=== PATIENT | female | born 1995 | race Hispanic/Latino ===

== ENCOUNTER 2017-07-19 08:54 | Observation (INO) | payer MEDICAID, OTHER ==
[~2017-07-19] VITALS: Ht 156.2 cm; Wt 52.2 kg
[2017-07-19 09:51] LABS: APPEARANCE,URINE Cloudy (CLEAR); BILIRUBIN,URINE Negative (NEGATIVE); COLOR,URINE Yellow (YELLOW); GLUCOSE, URINE (UA) Negative (NEGATIVE); KETONES,URINE Negative (NEGATIVE); LEUKOCYTE ESTERASE ,URINE Moderate (NEGATIVE); NITRATE,URINE Negative (NEGATIVE); OCCULT BLOOD,URINE Negative (NEGATIVE); PROTEIN,URINE Negative (NEGATIVE); UROBILINOGEN,URINE 0.2 mg/dL (0.2-1.0)
[2017-07-19 10:10] LABS: BACTERIA,URINE Few /HPF (None Seen); RBC,URINE 0-1 /HPF (0-1); SQUAMOUS EPITHELIAL CELL,UR Rare /LPF (0-2)
[2017-07-19] MEDS: LACTATED RINGERS 1000ML 1,000 ML IV PRN ×2 (10:30→11:49)
[2017-07-19 10:41] LABS: HEMATOCRIT 32.7 % (36-48); MEAN CORPUSCULAR HGB CONC 35.3 g/dL (32.0-36.0); MEAN CORPUSCULAR VOLUME 93.6 fL (79-99); PLATELET COUNT (AUTO) 144 K/uL (130-400); RED CELL DISTRIBUTION WIDTH 12.5 % (11.0-15.5); WHITE BLOOD COUNT (AUTO) 9.1 K/uL (4.8-10.8)
[2017-07-19] MEDS ORDERED: CEFTRIAXONE 1GM/D5W 50ML 50 ML IV SCH (12:23)
[2017-07-19] MEDS ORDERED: TERBUTALINE SULFATE VIAL 1MG/ML SQ ONE (12:26)
[2017-07-19] MEDS ORDERED: CEFTRIAXONE 1GM/D5W 50ML 50 ML IV ONE (12:28)
[2017-07-19] MEDS ORDERED: TERBUTALINE SULFATE VIAL 1MG/ML SQ PRN (12:30)
[2017-07-19] MEDS ORDERED: AZITHROMYCIN 500MG+NS 250ML 250 ML IV SCH (12:30)
[2017-07-19] MEDS ORDERED: CEFTRIAXONE SODIUM 1 GM IVP SCH (12:45)
[2017-07-20 07:28] LABS: HEPATITIS Bs ANTIGEN SCREEN P Negative (Negative)
== END 2017-07-19 14:25 | disposition home or self-care (01) ==
LOC: EDH 08:54 → LDH 08:55
PROVIDERS: ADMIT Obstetrics & Gynecology; ATTEND Obstetrics & Gynecology
DX: O36.8130 Decreased fetal movements, third trimester, not applicable or unspecified (principal); Z3A.38 38 weeks gestation of pregnancy
CPT/HCPCS: 36415; 76805; 76819; 81001; 85027; 86592; 86850; 86900; 86901; 87340; 96361 ×2; 96365; 96372; 99285; G0378 ×5; J0456; J0696 ×2; J3105; J7120; 96360

== ENCOUNTER 2017-07-21 06:33 | Inpatient (IN) | payer MEDICAID, OTHER ==
[~2017-07-21] VITALS: Ht 152.4 cm; Wt 52.6 kg
[2017-07-21 07:13] LABS: APPEARANCE,URINE Clear (CLEAR); BILIRUBIN,URINE Negative (NEGATIVE); COLOR,URINE Yellow (YELLOW); GLUCOSE, URINE (UA) Negative (NEGATIVE); KETONES,URINE Negative (NEGATIVE); LEUKOCYTE ESTERASE ,URINE Negative (NEGATIVE); NITRATE,URINE Negative (NEGATIVE); OCCULT BLOOD,URINE Trace (NEGATIVE); PROTEIN,URINE Negative (NEGATIVE); UROBILINOGEN,URINE 0.2 mg/dL (0.2-1.0)
[2017-07-21 07:41] LABS: BACTERIA,URINE Rare /HPF (None Seen); SQUAMOUS EPITHELIAL CELL,UR Few /LPF (0-2)
[2017-07-21] MEDS ORDERED: LACTATED RINGERS 1000ML 1,000 ML IV SCH (07:45)
[2017-07-21] MEDS ORDERED: CEFAZOLIN SODIUM 1 GM VIAL IVP PRN (07:45)
[2017-07-21] MEDS ORDERED: CEFAZOLIN SODIUM 1 GM VIAL ONE (07:52)
[2017-07-21 08:04] LABS: HEMATOCRIT 32.8 % (36-48); MEAN CORPUSCULAR HEMOGLOBIN 32.5 pg (27.0-33.0); MEAN CORPUSCULAR HGB CONC 34.8 g/dL (32.0-36.0); MEAN CORPUSCULAR VOLUME 93.4 fL (80-100); PLATELET COUNT (AUTO) 157 K/uL (130-400); RED BLOOD CELL COUNT(AUTO) 3.52 MIL/uL (4.00-5.50); RED CELL DISTRIBUTION WIDTH 12.7 % (11.0-15.5)
[2017-07-21] MEDS ORDERED: ONDANSETRON HCL 4 MG/2 ML VIAL ONE (08:08)
[2017-07-21] MEDS ORDERED: OXYTOCIN 10 USP UNITS/ML ONE ×2 (08:08→10:02)
[2017-07-21] MEDS ORDERED: DEXAMETHASONE SOD PHOSPHATE 10MG/ML 1ML VIAL ONE (08:08)
[2017-07-21] MEDS ORDERED: EPHEDRINE-NS PF 50MG/5ML SYRINGE IV ONE (08:09)
[2017-07-21] MEDS ORDERED: CEFAZOLIN SODIUM 1 GM VIAL IVP ONE (08:25)
[2017-07-21 09:07] LABS: AMPHET/METH SCREEN,URINE NEGATIVE (NEGATIVE); BARBITURATE SCREEN, URINE NEGATIVE (NEGATIVE); BENZODIAZEPINES SCREEN,URINE NEGATIVE (NEGATIVE); CANNABINOID SCREEN,URINE NEGATIVE (NEGATIVE); COCAINE SCREEN,URINE NEGATIVE (NEGATIVE); OPIATE SCREEN,URINE NEGATIVE (NEGATIVE); PHENCYCLIDINE SCREEN,URINE NEGATIVE (NEGATIVE)
[2017-07-21] MEDS ORDERED: OXYTOCIN-LR 20 UNITS/1000 ML 1,000 ML IV PRN (09:29)
[2017-07-21] MEDS ORDERED: PROMETHAZINE HCL 25 MG/ML 1ML AMPULE IM PRN ×2 (09:30→11:45)
[2017-07-21] MEDS ORDERED: SODIUM CHLORIDE 0.9% 10 ML VIAL IVP PRN (09:30)
[2017-07-21] MEDS ORDERED: MEPERIDINE-PF 75 MG/ML SYG IM PRN (09:30)
[2017-07-21 10:23] VITALS: BP 126/74
[2017-07-21 11:40] VITALS: BP 118/69
[2017-07-21] MEDS ORDERED: MORPHINE SULFATE 2 MG/ML 1ML SYG IVP PRN (11:45)
[2017-07-21] MEDS ORDERED: ONDANSETRON HCL 4 MG/2 ML 8 MG in SODIUM CHLORIDE 0.9% 50 ML IVP NR (11:45)
[2017-07-21] MEDS ORDERED: EPHEDRINE SULFATE 50 MG/ML AMPULE IVP PRN (11:45)
[2017-07-21] MEDS ORDERED: DiphenhydrAMINE HCL 50 MG/ML VIAL IVP PRN (11:45)
[2017-07-21] MEDS ORDERED: NALOXONE HCL 0.4 MG/1 ML ML IVP PRN ×2 (11:45)
[2017-07-21] MEDS ORDERED: HYDROCODONE/ACETAMINOPHEN 5/325 MG TAB PO PRN (11:45)
[2017-07-21] MEDS ORDERED: METOCLOPRAMIDE 10 MG/2 ML VIAL IVP PRN (11:45)
[2017-07-21] MEDS ORDERED: ONDANSETRON HCL 4 MG/2 ML VIAL IVP PRN ×2 (11:45)
[2017-07-21] MEDS ORDERED: PNV1TABL17 PO (16:29)
[2017-07-21 16:36] VITALS: BP 120/69
[2017-07-21] MEDS ORDERED: FLU VACC QS2017-18 36MOS UP/PF 60 MCG/0.5 ML ML IM ONE (18:15)
[2017-07-21 19:43] VITALS: BP 110/52
[2017-07-21] MEDS: HYDROCODONE/ACETAMINOPHEN 5/325 MG TAB PO PRN (20:35)
[2017-07-21] MEDS: DEXTROSE 5 %-0.45 % NACL 1,000 ML IV PRN (20:35)
[2017-07-21 23:17] VITALS: BP 109/57
[2017-07-22] MEDS: DEXTROSE 5 %-0.45 % NACL 1,000 ML IV PRN (02:39)
[2017-07-22 03:32] VITALS: BP 93/58
[2017-07-22 05:28] LABS: HEMATOCRIT 29.2 % (36-48); MEAN CORPUSCULAR HEMOGLOBIN 32.6 pg (27.0-33.0); MEAN CORPUSCULAR HGB CONC 34.8 g/dL (32.0-36.0); MEAN CORPUSCULAR VOLUME 93.8 fL (80-100); PLATELET COUNT (AUTO) 157 K/uL (130-400); RED BLOOD CELL COUNT(AUTO) 3.11 MIL/uL (4.00-5.50); RED CELL DISTRIBUTION WIDTH 12.4 % (11.0-15.5); WHITE BLOOD COUNT (AUTO) 17.3 K/uL (4.8-10.8)
[2017-07-22 07:29] VITALS: BP 101/53
[2017-07-22 08:22] LABS: HEPATITIS Bs ANTIGEN SCREEN P Negative (Negative)
[2017-07-22] MEDS: HYDROCODONE/ACETAMINOPHEN 5/325 MG TAB PO PRN ×2 (08:44→17:01)
[2017-07-22 11:29] VITALS: BP 103/66
[2017-07-22] MEDS ORDERED: BISACODYL 10 MG SUPP.RECT RC PRN (12:30)
[2017-07-22] MEDS: DOCUSATE SODIUM 100 MG CAP PO SCH ×2 (13:25→21:23)
[2017-07-22] MEDS: SIMETHICONE 80 MG TAB.CHEW PO PRN ×3 (13:25→21:23)
[2017-07-22] MEDS: IBUPROFEN 600 MG TABLET PO PRN ×2 (13:28→21:23)
[2017-07-22 13:37] LABS: RAPID PLASMA REAGIN NONREACTIVE (NONREACTIVE)
[2017-07-22 16:05] VITALS: BP 98/64
[2017-07-22 20:45] VITALS: BP 93/55
[2017-07-22] MEDS ORDERED: FLU VACC QS2017-18 36MOS UP/PF 60 MCG/0.5 ML ML IM ONE (22:00)
[2017-07-22 23:00] VITALS: BP 95/60
[2017-07-23 03:15] VITALS: BP 97/57
[2017-07-23] MEDS ORDERED: FLU VACC QS2017-18 36MOS UP/PF 60 MCG/0.5 ML ML IM SCH (07:00)
[2017-07-23 07:40] VITALS: BP 95/46
[2017-07-23] MEDS: DOCUSATE SODIUM 100 MG CAP PO SCH (09:00)
[2017-07-23] MEDS: SIMETHICONE 80 MG TAB.CHEW PO PRN (10:11)
[2017-07-23 11:14] VITALS: BP 115/63
== END 2017-07-23 14:05 | disposition home or self-care (01) | DRG 766 ==
LOC: EDH 06:33 → LDH 06:58 → OBSVTOIN 06:58 → WSH 10:21
PROVIDERS: ADMIT Obstetrics & Gynecology; ATTEND Obstetrics & Gynecology
PROC: 10D00Z1 Extraction of Products of Conception, Low, Open Approach (ICD-10-PCS; principal; 2017-07-21 08:00)
PROC: 3E0234Z Introduction of Serum, Toxoid and Vaccine into Muscle, Percutaneous Approach (ICD-10-PCS; 2017-07-23)
DX: O34.211 Maternal care for low transverse scar from previous cesarean delivery (principal); Z23 Encounter for immunization; Z37.0 Single live birth; Z3A.39 39 weeks gestation of pregnancy
CPT/HCPCS: 36415; 59510; 76805; 76819; 80305; 81001; 85027; 86592; 86701; 86850; 86900; 86901; 87340; 87390; 96360; 96361; 96365; 96372; A4344; A4450; A4606; G0378; J0456; J0690; J0696; J1100; J2175; J2405; J2550; J2590; J3105; J3490; J7120; Q2038